=== PATIENT | male | born 1965 | race Native Hawaiian/Other Pacific Islander ===

== ENCOUNTER 2017-08-05 12:05 | Emergency (ER) | payer SELFPAY ==
[~2017-08-05] VITALS: Ht 162.6 cm; Wt 70.0 kg
[~2017-08-05 12:05] MED LIST: AUGM875T PO; BC FPOW
[2017-08-05 12:08] VITALS: BP 120/62; PULSE 89; RESP 12; TEMP 99.6; O2SAT 98
--- NOTE | 2017-08-05 13:59 | PD ---
HPI Chief Complaint: Cold / Flu Symptoms Time Seen by Provider: 13:14 Travel History International Travel<30 days: No Contact w/Intl Traveler<30days: No Traveled to known affect area: No History of Present Illness HPI A 52-year-old man presents to the emergency department complaining of cough cold symptoms, worsening for the past 2-3 days, associated with fever, productive cough, feeling poorly. Some body aches and headaches as well. Multiple sick contacts. No COPD or asthma history. History Past Medical History Narrative Medical History of TIA/CVA History of sinus infections Past Surgical History Surgical History: No Previous Surgery Social History Alcohol Use: No Tobacco Use: No Allergies-Medications (Allergen,Severity, Reaction): Coded Allergies: No Known Allergies (Unverified , 07/03/15) Reported Meds & Prescriptions Reported Meds & Active Scripts Active Reported Bc Fast Pain Relief (Aspirin-Caffeine) Relief Pow Augmentin 875 mg Tab (Amoxicillin & Pot Clavulanate 875 mg Tab) 875 Mg Tab 875 Mg PO BID Review of Systems Except as stated in HPI: all other systems reviewed are Neg Physical Exam Narrative GENERAL: Well-appearing 52-year-old man, no acute distress. SKIN: Focused skin assessment warm/dry. HEAD: Atraumatic. Normocephalic. EYES: Pupils equal and round. No scleral icterus. No injection or drainage. ENT: No nasal bleeding or discharge. Mucous membranes pink and moist. NECK: Trachea midline. No JVD. CARDIOVASCULAR: Regular rate and rhythm. No murmur appreciated. RESPIRATORY: Productive cough, no respiratory distress, lung sounds are coarse but otherwise no adventitious lung sounds. GASTROINTESTINAL: Abdomen soft, non-tender, nondistended. Hepatic and splenic margins not palpable. MUSCULOSKELETAL: No obvious deformities. No clubbing. No cyanosis. No edema. NEUROLOGICAL: Awake and alert. No obvious cranial nerve deficits. Motor grossly within normal limits. Normal speech. PSYCHIATRIC: Appropriate mood and affect; insight and judgment normal. Data Data Last Documented VS Vital Signs Date Time Temp Pulse Resp B/P (MAP) Pulse Ox O2 Delivery O2 Flow Rate FiO2 08/05/17 12:08 99.6 89 12 120/62 (81) 98 Orders Orders Chest, Pa & Lat (08/05/17 ) Influenzae A/B Antigen (08/05/17 13:23) MDM Medical Decision Making Medical Screen Exam Complete: Yes Emergency Medical Condition: Yes Interpretation(s) Chest x-ray: No acute cardiopulmonary disease. Influenza negative. Differential Diagnosis Pneumonia, influenza, URI, bronchitis, other Narrative Course Medical decision making INITIAL is a 52-year-old male presents to the emergency department complaining of URI cough cold pneumonia symptoms. Likely flu. Will check chest x-ray, influenza, reassess. Diagnosis Primary Impression: URI (upper respiratory infection) Additional Instructions: Take Aleve-D and Mucinex DM as prescribed. You can return to work after you have had no fever for 24 hours. Drink plenty of fluids to stay well-hydrated. Follow-up with your primary doctor if you are not completely well in 7-10 days. Return to the emergency department for any worsening chest pain, trouble breathing, or any other new or worsening symptoms. Med/Other Pt SpecificInfo: Prescription(s) given Scripts Dextromethorphan-Guaifenesin ER 12 HR (Mucinex DM Maximum Strength) 60-1,200 Mg Tab 1 TAB PO BID Y for CHEST CONGESTION AND/OR COUGH for 5 Days, #10 TAB 0 Refills Prov: Babar Dyer MD 08/05/17 Pseudoephedrine-Naproxen (Aleve-D Sinus & Headache) 120-220 Mg Tab 1 TAB PO BID for 5 Days, #10 TAB Prov: Babar Dyer MD 08/05/17 Disposition: 01 DISCHARGE HOME Condition: Stable Babar Dyer MD Aug 05, 2017 13:59
--- NOTE | 2017-08-05 14:10 | RADRPT ---
EXAM DATE/TIME: 08/05/2017 13:50 [facility] COMPARISON: No previous studies available for comparison. INDICATIONS : Cough and fever. MEDICAL HISTORY : None. SURGICAL HISTORY : None. ENCOUNTER: Initial ACUITY: 1 day PAIN SCORE: 0/10 LOCATION: Bilateral chest FINDINGS: PA and lateral views of the chest demonstrate the lungs to be symmetrically aerated without evidence of mass, infiltrate or effusion. The cardiomediastinal contours are unremarkable. Osseous structure s are intact. CONCLUSION: 1. No acute cardiopulmonary disease. Martinez Mo MD on August 05, 2017 at 14:08 Board Certified Radiologist. This report was verified electronically.
[2017-08-05] MEDS ORDERED: DEXT1TAB18 PO (14:17)
[2017-08-05] MEDS ORDERED: ALEV120T PO (14:17)
== END 2017-08-05 14:59 | disposition home or self-care (01) ==
LOC: NEPD 12:05
DX: J06.9 Acute upper respiratory infection, unspecified (principal)
CPT/HCPCS: 71046; 87804; 99284